=== PATIENT | male | born 1970 | race Caucasian/White ===

== ENCOUNTER 2016-07-14 19:09 | Observation (INO) | payer OTHER ==
--- NOTE | ~2016-07-14 | DS ---
Discharge Summary [facility] [address] [place]. [address] NAME: IGNACIO POZO : 72 STATUS : DIS Joe PAT#: [id number] AGE: 46 ADM/REG DATE : 07/14/16 MR#: [id number] REPORT SERV DATE: 07/18/16 DICTATED BY: MATT LAFLEUR DATE: 07/16/16 REPORT STATUS : Draft TRANSCRIBED BY: MODL DATE: 07/16/16 ADMISSION DATE: 07/14/2016 DISCHARGE DATE: 07/16/2016 DISCHARGE DIAGNOSES: 1. Abdominal pain of unknown etiology. 2. Chronic peptic ulcer disease. 3. Intractable nausea and vomiting, currently resolved. 4. Weight loss, most likely due to poor nutrition. 5. Pyloric stenosis, not diverted, and has a J-tube. 6. Bipolar disorder. 7. Chronic cardiac murmur, stable. 8. Anemia of chronic disease. 9. Chronic pain management. 10.Hypogonadism. CONSULTANTS DURING THIS HOSPITALIZATION: Dr. William Mast of General Surgery and Dr. Aureliano Esparza. INVASIVE PROCEDURES DONE DURING THIS HOSPITALIZATION: None. BRIEF HISTORY OF PRESENT ILLNESS: The patient is a 46-year-old white male who is admitted because of intractable nausea, vomiting, and significant weight loss. For detailed history and physical exam, please see note dictated by Dr. Chinmay Jara on 07/14/2016. HOSPITAL COURSE: After being admitted to the hospital, this patient initially was kept n.p.o. We would have to resume his tube feedings. Surgery saw the patient in consultation and did not think that there was any surgical intervention to be done. I discussed his care with Dr. Aureliano Esparza over the phone even though he did not write an official consult, Dr. Esparza did not think that he needed any further GI intervention. I also called Dr. Mcneill, a surgeon, and we discussed the plan of care with him, and Dr. Mcneill recommended that we start tube feedings. After discussing this with the over the phone and the patient, it was decided that we would start tube feedings that would provide at least 2000 to 2500 calories per day. Currently, he is only getting 1000 calories. I have discussed that with the programmer analyst at the bedside and we will have our Case Management arrange his tube feedings in the home setting. Once these issues are resolved, he will be discharged later today to follow up in the outpatient setting. DISCHARGE DISPOSITION: Home. DISCHARGE ACTIVITY: As tolerated. DISCHARGE DIET: Tube feedings, avoid food per oral, may use medications by mouth. DISCHARGE MEDICATIONS: Levsin sublingual 0.125 mg four times daily for gastric spasms; Nexium granules 40 mg twice daily per J-tube; Cymbalta 90 mg once daily; levothyroxine 25 Discharge Summary [address] [address] NAME: IGNACIO POZO : 72 STATUS : DIS Joe PAT#: [id number] AGE: 46 ADM/REG DATE : 07/14/16 MR#: [id number] REPORT SERV DATE: 07/18/16 DICTATED BY: MATT LAFLEUR DATE: 07/16/16 REPORT STATUS : Draft TRANSCRIBED BY: KEON DATE: 07/16/16 mcg once daily; Habitrol patch as directed; Trileptal 150 mg twice daily, may be crushed and put down the J-tube; Klonopin 1 mg per PEG at bedtime; Roxicodone 10 mg every four hours; diazepam 2 mg per PEG every six hours; Combivent Respimat one puff four times daily; Flonase two sprays in each nostril once daily; Zofran 8 mg every four hours p.r.n. for nausea; and Promethazine 25 mg every four hours p.r.n. DISCHARGE FOLLOWUP: With Dr. Luis Felipe Mcneill in one to two weeks after this discharge. More than 35 minutes spent planning this patient's discharge, reconciling medications, writing prescriptions, discussing hospital care with multiple subspecialty physicians as well as the over the phone and documenting this discharge. ADAM/KEON Matt Lafleur M.D. / [id number] CC: Daija Mac M.D. Matthew Bagamery, M.D.
--- NOTE | ~2016-07-14 | HP ---
History And Physical [facility] [address] [place]. [address] NAME: IGNACIO POZO : 72 STATUS : ADM Joe PAT#: [id number] AGE: 46 ADM/REG DATE : 07/14/16 MR#: [id number] REPORT SERV DATE: 07/15/16 DICTATED BY: ZACARIAS CAMPOS DATE: 07/14/16 REPORT STATUS : Draft TRANSCRIBED BY: MODL DATE: 07/14/16 DATE OF ADMISSION: 07/14/2016 CHIEF COMPLAINT: A 46-year-old male presenting with 75-pound weight loss and a complicated recovery from surgery for pyloric stenosis. HISTORY OF PRESENT ILLNESS: The patient's history was obtained through careful interview with patient and , coupled with review of [facility] and [facility] medical records. The patient has been suffering from pyloric stenosis for a number of years. He has been seen intermittently by Dr. Esparza and then for some time by Dr. Andrade, surgeon. But when more conservative and conventional interventions did not help patient, he was referred to Dr. Joseph Mcneill at [facility] for some kind of specialized procedure (some kind of partial gastrectomy with a "T tube" placed). He underwent the surgery in 12/2015 and for a period of time had some improvement in his symptoms. He also was placed on TPN for a number of months with some weight gain, but when attempt was made to come off TPN and start a regular diet, he had only progression of abdominal pain and vomiting. Finally, in 2016, it was felt that patient would need a chronic feeding tube placed. This was finally accomplished on 07/03/2016 at [facility] and despite attempting to start tube feeds, patient has been unable to really tolerate tube feeds with intractable severe vomiting every day and increasing abdominal pain. In the past he received quite a bit of care through [facility] and felt that he wanted to come back to this hospital for evaluation by Surgery and GI physicians here. He describes epigastric abdominal pain, a quality "like someone ripping my guts out" and stating frankly "I thought I was dying." He describes it as a 10/10 severity of pain. He has vomiting every day and his vomit comes up looking like bile, but has an extremely foul odor that is unbearable to the people around him. He has had no diarrhea; no fevers, chills; no shortness of breath; no chest pain; no lightheadedness; no confusion. Several years ago he weighed 185 pounds when he was healthy. He had dropped to 126 pounds by 12/2015 when he had the surgery. After being on TPN, within a month or two, he had gone back up to 143 pounds. But now in 06/2016, he is back down to 110 pounds for a total weight loss of 75 pounds. REVIEW OF SYSTEMS: Otherwise 14-point review of systems was obtained and was negative. PAST MEDICAL HISTORY: 1. Peptic ulcer disease. 2. Pyloric stenosis, seen by Dr. Esparza. 3. Chronic cardiac murmur. History And Physical [address] [address] NAME: IGNACIO POZO : 72 STATUS : ADM Joe PAT#: [id number] AGE: 46 ADM/REG DATE : 07/14/16 MR#: [id number] REPORT SERV DATE: 07/15/16 DICTATED BY: ZACARIAS CAMPOS DATE: 07/14/16 REPORT STATUS : Draft TRANSCRIBED BY: KEON DATE: 07/14/16 4. Bipolar dose disorder with depression and anxiety. 5. Hypothyroidism. 6. Anemia. 7. Pyelonephritis. 8. Chronic pain management. 9. Hypotestosteronism. 10.Aspiration. PAST SURGICAL HISTORY: 1. PEG tube placement, 06/2016. 2. Cervical spine surgery with postoperative infection. 3. Vasectomy. 4. Partial gastrectomy with "T-Tube" placement under the care Dr. Mcneill. ALLERGIES: ALLERGIES AND INTOLERANCE TO MORPHINE. SOCIAL HISTORY: He had smoked one to two packs per day most of his life, but quit in the last month. No alcohol abuse. He does use marijuana occasionally to help with his symptoms. He is disabled. and has two children, 1 grandchild. Lives in [place], [place]. FAMILY HISTORY: Heart disease and diabetes. CURRENT MEDICATIONS: Include Klonopin 1 mg at bedtime, Valium 2 mg every six hours as needed, Cymbalta 90 mg daily, Flonase, Combivent, Synthroid 25 mcg daily, nicotine patch, Zofran p.r.n., Trileptal 150 mg twice a day, Roxicodone 10 mg every four hours as needed, Protonix 40 mg twice a day, Phenergan p.r.n. PHYSICAL EXAMINATION: VITAL SIGNS: Temperature 96.2, pulse 65, blood pressure 152/95, respiratory rate 18, O2 saturation 100% on room air. GENERAL: Emaciated and cachectic-appearing male in evidence of extreme distress secondary to abdominal pain and vomiting. HEENT: Pupils equal, round, and reactive to light. No conjunctival pallor. No scleral icterus. Nares are patent. Oropharynx is clear of obstruction. Dry mucous membranes. NECK: Trachea midline. No thyromegaly. LYMPH: No cervical lymphadenopathy. No supraclavicular lymphadenopathy. RESPIRATORY: Clear to auscultation at bases. No wheezes, rales, or rhonchi. Normal respiratory effort. CARDIOVASCULAR: Regular rate and rhythm. No murmurs, rubs, or gallops. No extremity edema is appreciated. ABDOMEN: Flat. Extremely tender particularly in the epigastric area with guarding, but no rebound. Nondistended. No hepatosplenomegaly. DERMATOLOGICAL: Warm and dry extremities. No pallor. No cyanosis. PSYCHIATRIC: A flat affect. Discouraged mood. Alert and oriented x3. LABORATORY DATA: White blood count 15.7, hemoglobin 14, hematocrit 41, platelets 269. History And Physical [address] [address] NAME: IGNACIO POZO : 72 STATUS : ADM Joe PAT#: [id number] AGE: 46 ADM/REG DATE : 07/14/16 MR#: [id number] REPORT SERV DATE: 07/15/16 DICTATED BY: ZACARIAS CAMPOS DATE: 07/14/16 REPORT STATUS : Draft TRANSCRIBED BY: MOD DATE: 07/14/16 Sodium 139, potassium 3.9, chloride 101, bicarb 31, BUN 15, creatinine 0.64, glucose 105. Lipase 133, liver enzymes within normal limits. STUDIES: CT scan of the abdomen and pelvis on 07/13/2016 showed no acute abnormality. ASSESSMENT AND PLAN: 1. Intractable vomiting. P.R.N. medications for support. Consult Dr. Esparza, raw products director; consult Dr. Andrade, surgeon. 2. History of partial gastrectomy. T-tube placement and some kind of feeding tube placement. 3. Weight loss. Check prealbumin. Obtain a nutrition consult to determine calorie needs. Consider period of TPN to increase strength and weight? 4. Leukocytosis. Monitor for overt fevers. Check ESR and CRP and procalcitonin. KPL/MODL Zacarias Campos M.D. / [id number] CC: Daija Asencio M.D.
[2016-07-14 18:14] LABS: BASOPHILS 0.1 %; BASOPHILS ABSOLUTE 0.02 10/3/uL (0.0-0.16); EOSINOPHILS 0.6 %; ER CBC TAT 0 Hrs 07 Mins; HEMOGLOBIN 13.8 g/dL (13.6-17.8); IMMATURE GRANULOCYTES 0.4 %; IMMATURE GRANULOCYTES ABSOLUTE 0.06 10/3/uL (0.0-0.11); LYMPHOCYTES ABSOLUTE 2.04 10/3/uL (0.67-4.30); MEAN CORPUS HGB CONC 33.7 g/dL (32.0-36.0); MEAN CORPUSCULAR HEMOGLOB 28.9 pg (26.0-34.0); MEAN CORPUSCULAR VOLUME 85.6 fL (80-100); MEAN PLATELET VOLUME 9.2 fL (9.2-13.0); MONOCYTES 5.1 %; NEUTROPHILS 80.8 %; NEUTROPHILS ABSOLUTE 12.67 10/3/uL (2.02-8.40); PLATELET COUNT 269 10/3/uL (150-400); RBC DISTRIBUTION WIDTH 15.2 % (12.0-16.0); RED CELL COUNT 4.78 10/6/uL (4.7-6.1); WHITE BLOOD CELLS 15.7 10/3/uL (4.5-10.5)
[2016-07-14 18:15] LABS: HEMATOCRIT 40.9 % (40.0-51.0); MANUAL DIFF NO %
[2016-07-14 18:36] LABS: A/G RATIO 1.1 (0.7-1.9); ALBUMIN 3.6 G/DL (3.5-5.0); CHLORIDE, SERUM 101 MMOL/L (96-112); CO2 (CARBON DIOXIDE) 31 MMOL/L (24-34); CREATININE 0.64 MG/DL (0.70-1.30); GFR AFRICAN AMERICAN 137 ML/MIN (>=60); GFR NON AFRICAN AMERICAN 118 ML/MIN (>=60); GLOBULIN 3.3 G/DL (2.5-4.1); GLUCOSE, SERUM 105 MG/DL (60-99); POTASSIUM, SERUM 3.9 MMOL/L (3.5-5.3); SGOT(AST) 14 U/L (5-40); SGPT(ALT) 36 U/L (5-65); SODIUM, SERUM 139 MMOL/L (135-148); TOTAL BILIRUBIN 0.4 MG/DL (0-1.2); TOTAL PROTEIN 6.9 G/DL (6.0-8.5)
[2016-07-14 18:38] LABS: ALKALINE PHOSPHATASE 138 U/L (45-117); BUN (BLOOD UREA NITROGEN) 15 MG/DL (6-23); CALCIUM, SERUM 8.9 MG/DL (8.5-10.4)
[~2016-07-14 19:09] MED LIST: ACET500CAP; CA/MAG/ZINC/VIT D PO; CAL PO; CENTRUM PO; CIP5 PO; COMBIVENT RESPIM4 GM INH; CYMBALTA30 PO; FLONASE NAS; GINGER ROOT CAPSULE PO; KLONO1 PO; MAG PO; MULTIVITAMI1 PO; NICODERM C21 MG/241 TOP; OXYCOD PO; P10 PO; POT GLUCONAT550 M1 PO; POTASSIUM OTC PO; PR25 PO; PRILO PO; PROTONIX PO; SYN.025B PO; TRILEP150 PO; TRILEP300 PO; VIT D PO; VITC500 PO; ZINC 50MG TABLET PO; ZINC PO; ZOFRAN8 PO; ZOFRANODT8 PO; [UNRECOGNIZED DRUG - OTHER] PO
[2016-07-14 19:57] LABS: WBC (NOT ORDERED) (RFLEX) 0 (0-5)
[2016-07-14] MEDS ORDERED: KLONO1 PEG (19:59)
[2016-07-14] MEDS ORDERED: HABIT21 TOP (19:59)
[2016-07-14] MEDS ORDERED: OXYCOD PEG (20:00)
[2016-07-14] MEDS ORDERED: V2 PEG (20:00)
[2016-07-14] MEDS ORDERED: TRILEP150 PO (20:01)
[2016-07-14] MEDS ORDERED: SYN.025B PO (20:01)
[2016-07-14] MEDS ORDERED: PROTONIX PO (20:01)
[2016-07-14] MEDS ORDERED: CYMBALTA30 PO (20:01)
[2016-07-14 20:02] LABS: ASCORBIC ACID (UR NOT ORDER) 40 (NEG); BILIRUBIN, URINE NEGATIVE (NEG); ER URINALYSIS TAT 0 Hrs 05 Mins; KETONE, URINE TRACE MG/DL (NEG); LEUKOCYTE ESTERASE(NOT OR NEG (NEG); NITRITE (URINE) NEG (NEG)
[2016-07-14] MEDS ORDERED: FLONASE NAS (20:02)
[2016-07-14] MEDS ORDERED: COMBIVENT RESPIM4 GM INH (20:02)
[2016-07-14] MEDS ORDERED: ZOFRAN8 PO (20:02)
[2016-07-14] MEDS ORDERED: PR25 PO (20:03)
[2016-07-15 06:08] LABS: BASOPHILS 0.2 %; BASOPHILS ABSOLUTE 0.02 10/3/uL (0.0-0.16); EOSINOPHILS 3.5 %; EOSINOPHILS ABSOLUTE 0.31 10/3/uL (0.0-0.53); HEMOGLOBIN 11.9 g/dL (13.6-17.8); IMMATURE GRANULOCYTES 0.3 %; IMMATURE GRANULOCYTES ABSOLUTE 0.03 10/3/uL (0.0-0.11); LYMPHOCYTES 35.9 %; LYMPHOCYTES ABSOLUTE 3.17 10/3/uL (0.67-4.30); MEAN CORPUS HGB CONC 33.8 g/dL (32.0-36.0); MEAN CORPUSCULAR HEMOGLOB 28.9 pg (26.0-34.0); MEAN CORPUSCULAR VOLUME 85.4 fL (80-100); MEAN PLATELET VOLUME 9.1 fL (9.2-13.0); MONOCYTES ABSOLUTE 0.71 10/3/uL (0.21-1.20); NEUTROPHILS 52.1 %; PLATELET COUNT 250 10/3/uL (150-400); RBC DISTRIBUTION WIDTH 15.6 % (12.0-16.0); RED CELL COUNT 4.12 10/6/uL (4.7-6.1)
[2016-07-15 06:09] LABS: HEMATOCRIT 35.2 % (40.0-51.0); MANUAL DIFF NO %; WHITE BLOOD CELLS 8.8 10/3/uL (4.5-10.5)
[2016-07-15 06:26] LABS: INTERNATIONAL NORMAL RATI 1.1 UNITS (-); PARTIAL THROMBO TIME 30.9 SEC (22.5-37.2); PROTIME (NOT ORD) 14.5 SEC (12.0-14.5)
[2016-07-15 06:39] LABS: BUN (BLOOD UREA NITROGEN) 10 MG/DL (6-23); CALCIUM, SERUM 8.2 MG/DL (8.5-10.4); CHLORIDE, SERUM 108 MMOL/L (96-112); CO2 (CARBON DIOXIDE) 25 MMOL/L (24-34); CREATININE 0.46 MG/DL (0.70-1.30); GFR AFRICAN AMERICAN 157 ML/MIN (>=60); GFR NON AFRICAN AMERICAN 135 ML/MIN (>=60); GLUCOSE, SERUM 84 MG/DL (60-99); POTASSIUM, SERUM 3.4 MMOL/L (3.5-5.3); SGOT(AST) 14 U/L (5-40); SGPT(ALT) 27 U/L (5-65); SODIUM, SERUM 143 MMOL/L (135-148); TOTAL BILIRUBIN 0.4 MG/DL (0-1.2)
[2016-07-15 06:40] LABS: ALBUMIN 2.8 G/DL (3.5-5.0); ALKALINE PHOSPHATASE 109 U/L (45-117); C-REACTIVE PROTEIN < 2.9 MG/L (<8.0); GLOBULIN 2.7 G/DL (2.5-4.1); TOTAL PROTEIN 5.5 G/DL (6.0-8.5)
[2016-07-15 07:17] LABS: PROCALCITONIN <0.05 ng/mL (<0.5)
[2016-07-15 08:08] LABS: SED RATE 7 MM/HR (0-15)
[2016-07-16 06:29] LABS: BASOPHILS 0.2 %; BASOPHILS ABSOLUTE 0.02 10/3/uL (0.0-0.16); EOSINOPHILS 3.5 %; EOSINOPHILS ABSOLUTE 0.28 10/3/uL (0.0-0.53); HEMATOCRIT 35.9 % (40.0-51.0); HEMOGLOBIN 12.2 g/dL (13.6-17.8); IMMATURE GRANULOCYTES 0.2 %; IMMATURE GRANULOCYTES ABSOLUTE 0.02 10/3/uL (0.0-0.11); LYMPHOCYTES 34.6 %; MEAN CORPUSCULAR HEMOGLOB 28.9 pg (26.0-34.0); MEAN CORPUSCULAR VOLUME 85.1 fL (80-100); MONOCYTES 7.4 %; NEUTROPHILS 54.1 %; NEUTROPHILS ABSOLUTE 4.38 10/3/uL (2.02-8.40); PLATELET COUNT 242 10/3/uL (150-400); RED CELL COUNT 4.22 10/6/uL (4.7-6.1); WHITE BLOOD CELLS 8.1 10/3/uL (4.5-10.5)
[2016-07-16 06:30] LABS: MANUAL DIFF NO %
[2016-07-16 08:54] LABS: CALCIUM, SERUM 8.9 MG/DL (8.5-10.4); CHLORIDE, SERUM 105 MMOL/L (96-112); CO2 (CARBON DIOXIDE) 25 MMOL/L (24-34); CREATININE 0.53 MG/DL (0.70-1.30); GFR AFRICAN AMERICAN 148 ML/MIN (>=60); GFR NON AFRICAN AMERICAN 128 ML/MIN (>=60); POTASSIUM, SERUM 3.9 MMOL/L (3.5-5.3); SODIUM, SERUM 140 MMOL/L (135-148)
[2016-07-16 08:59] LABS: BUN (BLOOD UREA NITROGEN) 18 MG/DL (6-23); GLUCOSE, SERUM 64 MG/DL (60-99)
[2016-07-16] MEDS ORDERED: NEXIUM40 (15:48)
[2016-07-16] MEDS ORDERED: LEVSINTAB PO (15:49)
[2016-07-16] MEDS ORDERED: LEVSINTAB SL (15:51)
== END 2016-07-16 16:36 | disposition home or self-care (01) ==
LOC: ER 19:09 → 4SO 20:23
PROVIDERS: Emergency Medicine; Hospitalist; Internal Medicine
DX: K27.7 Chronic peptic ulcer, site unspecified, without hemorrhage or perforation (principal); R63.4 Abnormal weight loss; K31.1 Adult hypertrophic pyloric stenosis; F31.9 Bipolar disorder, unspecified; D63.8 Anemia in other chronic diseases classified elsewhere; E29.1 Testicular hypofunction; E03.9 Hypothyroidism, unspecified; N12 Tubulo-interstitial nephritis, not specified as acute or chronic; F17.210 Nicotine dependence, cigarettes, uncomplicated; Z98.52 Vasectomy status; Z98.890 Other specified postprocedural states; Z88.5 Allergy status to narcotic agent; Z82.49 Family history of ischemic heart disease and other diseases of the circulatory system; Z83.3 Family history of diabetes mellitus; Z79.51 Long term (current) use of inhaled steroids; Z79.891 Long term (current) use of opiate analgesic; Z79.899 Other long term (current) drug therapy; R11.2 Nausea with vomiting, unspecified; Z93.4 Other artificial openings of gastrointestinal tract status
CPT/HCPCS: 74150; 74176; 74249; 80048; 80053; 81001; 83605; 83690; 83735; 84145; 84443; 85025; 85610; 85652; 85730; 86140; 96374; 96375; 96376; 99285; A9270-GY; C9113; G0378; J1170; J1980; J2405; J2550; J2765